=== PATIENT | female | born 2005 | race Hispanic/Latino ===

== ENCOUNTER 2023-10-09 12:10 | Emergency (ER) | payer SELFPAY ==
[2023-10-09 12:49] LABS: Bilirubin Neg (Negative); Blood, Urine Negative (Negative); Clarity Clear (Clear); Glucose, Urine (Dipstick) Normal (Negative); Ketone, Urine 15 mg/dL (Negative); Leukocyte 25 (Negative); Nitrite Negative (Negative); Protein, Urine (Dipstick) 15 mg/dl (Neg-Trace); Specific Gravity, Urine 1.025 (1.005-1.030); Urobilinogen Normal mg/dL (Less than 2)
[2023-10-09 13:19] LABS: CAUTI Indications for Culture Pregnancy; RBC/HPF 0-3 HPF (0-3); Renal Epithelial 0-3 HPF (None Seen); Squamous Epithelial 21-50 HPF (0-3)
[2023-10-09 13:23] LABS: Bacteria/HPF 2+ HPF (None Seen); Epithelial Cast 0-3 LPF (None Seen)
[2023-10-09 13:25] LABS: Urine Culture Reflex Yes Yes
[2023-10-09 13:50] LABS: #Eosinphils 0.1 10x3/uL (0.0-0.5); #Monocytes 0.5 10x3/uL (0.0-1.1); #Neutrophils 5.9 10x3/uL (1.5-8.4); %Basophils 0.1 % (0.0-2.0); %Eosinophils 0.9 % (0.0-6.0); %Lymphocytes 26.4 % (18.0-47.0); %Monocytes 5.1 % (0.0-10.0); %Neutrophils 67.4 % (40.0-75.0); Hematocrit 41.3 % (34.9-44.5); Hemoglobin 13.8 g/dL (12.0-15.5); Mean Corpuscular HGB CONC 33.4 g/dL (32.0-36.0); Mean Corpuscular Volume 86.8 fl (81.6-98.3); Mean Platelet Volume 11.7 fl (7.4-10.4); Platelet Count 207 10x3/uL (150-450); RBC Distribution Width 13.2 % (11.5-14.5); Red Blood Cell (RBC) Count 4.76 10x6/uL (3.90-5.03); White Blood Cell (WBC) Count 8.8 10x3/uL (3.5-10.5)
[2023-10-09 14:03] LABS: ALT (SGPT) 15 U/L (8-55); AST (SGOT) 15 U/L (5-34); Albumin 4.3 g/dL (3.5-5.0); Alkaline Phosphatase 55 U/L (40-100); Anion Gap 14 mmol/L (10-20); BUN (Urea Nitrogen) 10 mg/dL (7.0-18.7); Bilirubin, Total 0.8 mg/dL (0.2-1.2); Calc. Creatinine Clearance 0 mL/min (70-130); Calcium 8.7 mg/dL (7.8-10.44); Carbon Dioxide 20 mmol/L (22-29); Chloride 107 mmol/L (98-107); Estimated GFR 130; Globulin 3.5 g/dL (2.4-3.5); Glucose 75 mg/dL (70-105); Potassium 3.8 mmol/L (3.5-5.1); Protein, Total 7.8 g/dL (6.0-8.3); Sodium 137 mmol/L (136-145)
== END 2023-10-09 14:36 | disposition home or self-care (01) ==
LOC: CSHERS 12:10
DX: O20.0 Threatened abortion (principal); O23.90 Unspecified genitourinary tract infection in pregnancy, unspecified trimester; R82.71 Bacteriuria; Z3A.01 Less than 8 weeks gestation of pregnancy
CPT/HCPCS: 76856; 80053; 81001; 84702; 85025; 86850; 86900; 86901; 87086

== ENCOUNTER 2024-06-01 10:20 | Day surgery (SDC) | payer OTHER ==
[2024-06-01 10:59] VITALS: BMI 28.3
[2024-06-01] MEDS ORDERED: hydrALAZINE 20 MG/ML VIAL SLOW IVP PRN (11:08)
[2024-06-01 11:48] LABS: #Basophils 0.02 10x3/uL (0.0-0.2); #Eosinphils 0.02 10x3/uL (0.0-0.5); #Monocytes 0.51 10x3/uL (0.0-1.1); #Neutrophils 7.15 10x3/uL (1.5-8.4); %Basophils 0.2 % (0.0-2.0); %Eosinophils 0.2 % (0.0-6.0); %Lymphocytes 13.7 % (18.0-47.0); %Monocytes 5.7 % (0.0-10.0); %Neutrophils 79.5 % (40.0-75.0); Hematocrit 34.4 % (34.9-44.5); Hemoglobin 10.7 g/dL (12.0-15.5); Mean Corpuscular HGB CONC 31.1 g/dL (32.0-36.0); Mean Corpuscular Hemoglobin 23.8 pg (27.0-33.0); Mean Corpuscular Volume 76.4 fL (81.6-98.3); Platelet Count 193 10x3/uL (150-450); RBC Distribution Width 22.5 % (11.5-14.5)
[2024-06-01 11:57] LABS: ALT (SGPT) 8 U/L (8-55); AST (SGOT) 12 U/L (5-34); Albumin 2.8 g/dL (3.5-5.0); Alkaline Phosphatase 200 U/L (40-110); Anion Gap 12 mmol/L (10-20); BUN (Urea Nitrogen) 6 mg/dL (7.0-18.7); Bilirubin, Total 0.4 mg/dL (0.2-1.2); Calc. Creatinine Clearance 179 mL/min (70-130); Calcium 9.1 mg/dL (7.8-10.44); Carbon Dioxide 21 mmol/L (22-29); Chloride 107 mmol/L (98-107); Estimated GFR 133; Globulin 3.6 g/dL (2.4-3.5); Glucose 91 mg/dL (70-105); Potassium 3.8 mmol/L (3.5-5.1); Protein, Total 6.4 g/dL (6.0-8.3); Sodium 136 mmol/L (136-145)
[2024-06-01 12:27] LABS: Creatinine, Urine 60.78 mg/dL (47-110)
== END 2024-06-01 14:10 | disposition home health service (06) ==
LOC: CSHLD/OP 10:20
PROVIDERS: ATTEND Family Medicine
DX: O99.891 Other specified diseases and conditions complicating pregnancy (principal); R03.0 Elevated blood-pressure reading, without diagnosis of hypertension; Z3A.38 38 weeks gestation of pregnancy
CPT/HCPCS: 36415; 80053; 82570; 84156; 85025

== ENCOUNTER 2024-06-05 19:30 | Inpatient (IN) | payer OTHER ==
[2024-06-05 21:12] VITALS: BMI 28.3
[2024-06-05] MEDS ORDERED: Acetaminophen 500 MG TAB PO PRN (21:40)
[2024-06-05] MEDS ORDERED: Diphenoxylate HCl/Atropine Tablet PO PRN (21:40)
[2024-06-05] MEDS ORDERED: Promethazine HCl 25 MG/ML VIAL IM PRN (21:40)
[2024-06-05] MEDS ORDERED: Ondansetron PF 4 MG/2 ML Vial IVP PRN (21:40)
[2024-06-05] MEDS ORDERED: Carboprost 250 MCG/ML AMP IM PRN (21:40)
[2024-06-05] MEDS ORDERED: Lidocaine 1% (PF) 30 ML VIAL SC PRN (21:40)
[2024-06-05] MEDS ORDERED: Misoprostol 200 MCG TAB PR PRN (21:40)
[2024-06-05] MEDS ORDERED: Methylergonovine 0.2 MG/ML VIAL IM PRN (21:40)
[2024-06-05] MEDS ORDERED: hydrALAZINE 20 MG/ML VIAL SLOW IVP PRN ×2 (21:40)
[2024-06-05] MEDS ORDERED: Tranexamic Acid 1,000 MG/10 ML VIAL IVP PRN (21:40)
[2024-06-05] MEDS ORDERED: Misoprostol 100 MCG TAB VAG SCH (21:45)
[2024-06-05] MEDS ORDERED: Oxytocin 30 units/NS 500 ML 500 ML IV SCH ×2 (21:45)
[2024-06-05 22:11] LABS: Hematocrit 36.3 % (34.9-44.5); Hemoglobin 11.5 g/dL (12.0-15.5); Mean Corpuscular HGB CONC 31.7 g/dL (32.0-36.0); Mean Corpuscular Hemoglobin 24.6 pg (27.0-33.0); Mean Corpuscular Volume 77.6 fL (81.6-98.3); Platelet Count 184 10x3/uL (150-450); RBC Distribution Width 24.4 % (11.5-14.5); Red Blood Cell (RBC) Count 4.68 10x6/uL (3.90-5.03); White Blood Cell (WBC) Count 9.7 10x3/uL (3.5-10.5)
[2024-06-05 22:18] LABS: Syphilis Antibody Nonreactive (Nonreactive); Syphilis Antibody Index 0.05 S/CO (<1.00 Non-Reactive)
[2024-06-05 22:19] LABS: HBsAg Index 0.16 S/CO (0-0.99); Hep B Surf Ag - L&D Non-Reactive S/CO (NonReactive)
[2024-06-06] MEDS: Lactated Ringer's 1,000 ML IV SCH (01:36)
[2024-06-06] MEDS: Misoprostol 100 MCG TAB VAG SCH (01:36)
[2024-06-06] MEDS: Oxytocin 30 units/NS 500 ML 500 ML IV SCH (01:44)
[2024-06-06] MEDS: fentaNYL 50 mcg/mL 1 mL Vial SLOW IVP PRN (04:38)
[2024-06-06] MEDS ORDERED: Moisturizing Cream (Eucerin) 113 GM JAR TOP PRN (09:28)
[2024-06-06] MEDS ORDERED: Lactated Ringer's 500 ML IV PRN (09:28)
[2024-06-06] MEDS ORDERED: diphenhydrAMINE 50 MG/ML VIAL IVP PRN (09:28)
[2024-06-06] MEDS ORDERED: ePHEDrine Sulfate 50 MG/10 ML VIAL SLOW IVP PRN (09:28)
[2024-06-06] MEDS ORDERED: Promethazine HCl 25 MG/ML VIAL IM PRN (09:28)
[2024-06-06] MEDS ORDERED: Acetaminophen 325 MG TAB PO PRN ×2 (09:28→16:19)
[2024-06-06] MEDS ORDERED: Naloxone HCl 0.4 mg/ml Vial IVP PRN ×2 (09:28)
[2024-06-06] MEDS ORDERED: fentaNYL 2 mcg/Ropivacaine 0.2% Epidural 100 ML CADD EPIDURAL SCH (09:30)
[2024-06-06] MEDS ORDERED: Communication Order-Pharmacy FS SCH (09:30)
[2024-06-06] MEDS: Ondansetron PF 4 MG/2 ML Vial IVP PRN (12:32)
[2024-06-06] MEDS ORDERED: Bupivacaine 0.25% HCL 30 ML VIAL ONE (15:00)
[2024-06-06] MEDS ORDERED: Benzocaine-Menthol 82.5 ML CAN TOP PRN (16:19)
[2024-06-06] MEDS ORDERED: Milk Of Magnesia 30 ML UDCUP PO PRN (16:19)
[2024-06-06] MEDS ORDERED: Lanolin Ointment 7 GM TUBE TOP PRN (16:19)
[2024-06-06] MEDS ORDERED: Methylergonovine 0.2 MG/ML VIAL IM PRN (16:19)
[2024-06-06] MEDS ORDERED: Misoprostol 200 MCG TAB VAG PRN (16:19)
[2024-06-06] MEDS ORDERED: Preparation H Ointment 28 GM TUBE PR PRN (16:19)
[2024-06-06] MEDS ORDERED: Bisacodyl 10 MG SUPP PR PRN (16:19)
[2024-06-06] MEDS ORDERED: hydrALAZINE 20 MG/ML VIAL SLOW IVP PRN (16:19)
[2024-06-06] MEDS ORDERED: Oxytocin 30 units/NS 500 ML 500 ML IV SCH (16:19)
[2024-06-06] MEDS ORDERED: diphenhydrAMINE 25 MG CAP PO PRN (16:19)
[2024-06-06] MEDS: fentaNYL/Ropivacaine Epidural 100 ML ONE (16:43)
[2024-06-06] MEDS: Boostrix 0.5 ML (Tdap) VIAL (>/=7 yrs of age) IM ONE (16:43)
[2024-06-06] MEDS: Ferrous Sulfate 325 MG TAB PO SCH (16:43)
[2024-06-06] MEDS: Ibuprofen 800 MG TAB PO SCH (21:19)
[2024-06-06] MEDS: Docusate 100 MG CAP PO SCH (21:19)
[2024-06-07] MEDS: Prenatal Vitamin 1 TAB PO SCH (08:13)
[2024-06-08 07:35] VITALS: BP 127/77; TEMP 97.9
== END 2024-06-08 13:10 | disposition home or self-care (01) | DRG 806 ==
LOC: CSHLD 20:44 → CSHPP 06-06 16:18
PROVIDERS: ADMIT Obstetrics & Gynecology; ATTEND Obstetrics & Gynecology
PROC: 10E0XZZ Delivery of Products of Conception, External Approach (ICD-10-PCS; principal; 2024-06-06)
PROC: 0KQM0ZZ Repair Perineum Muscle, Open Approach (ICD-10-PCS; 2024-06-06)
PROC: 10907ZC Drainage of Amniotic Fluid, Therapeutic from Products of Conception, Via Natural or Artificial Opening (ICD-10-PCS; 2024-06-06)
DX: O99.02 Anemia complicating childbirth (principal); O26.873 Cervical shortening, third trimester; Z37.0 Single live birth; O71.4 Obstetric high vaginal laceration alone; Z3A.39 39 weeks gestation of pregnancy; D64.9 Anemia, unspecified; O69.81X0 Labor and delivery complicated by cord around neck, without compression, not applicable or unspecified
CPT/HCPCS: 51702; 85027; 86780; 86850; 86900; 86901; 87340; J0665; J2405; J2590; J3010; J7120